=== PATIENT | female | born 1960 | race Caucasian/White ===

== ENCOUNTER 2025-02-07 16:06 | Emergency (ER) | payer BC ==
[~2025-02-07] VITALS: Ht 162.6 cm; Wt 57.3 kg
[2025-02-07 16:12] VITALS: BP 158/94; PULSE 88; RESP 16; TEMP 98; O2SAT 97
[2025-02-07] MEDS ORDERED: HYDR-3965 PO (17:07)
== END 2025-02-07 17:16 | disposition home or self-care (01) ==
LOC: ER 16:07
DX: S52.502A Unspecified fracture of the lower end of left radius, initial encounter for closed fracture (principal); Z88.5 Allergy status to narcotic agent; W01.0XXA Fall on same level from slipping, tripping and stumbling without subsequent striking against object, initial encounter; Y93.89 Activity, other specified; Y92.89 Other specified places as the place of occurrence of the external cause; Y99.8 Other external cause status
CPT/HCPCS: 29125; 73110; 99284